=== PATIENT | male | born 1975 | race Caucasian/White ===

== ENCOUNTER → 2016-09-30 | Outpatient (CLI) | payer BC ==
[~2016-09-30] MED LIST: ADVIL200 MG PO; AMBIEN10 MG PO; FLEXERIL10 MG PO; HYDROCODON-ACE1 EAC4 PO; PRINIVIL (ZESTR20 MG PO
== END | disposition disaster alternative care site (69) ==
LOC: GRAD 09:23
DX: M54.5 Low back pain (principal); M79.604 Pain in right leg; Z53.8 Procedure and treatment not carried out for other reasons

== ENCOUNTER → 2016-10-25 | Day surgery (SDC) | payer BC ==
[~2016-10-25] VITALS: Ht 180.3 cm; Wt 97.0 kg
--- NOTE | ~2016-10-25 | OR ---
PATIENT'S NAME: BRENTON ALCAZAR [facility] AGE: 41 Y [address] ROOM: [place] [id number] LOCATION: [facility] [place] ADMIT DATE: 10/25/2016 OR/Procedure Report DISCHARGE DATE: FAMILY PHYSICIAN: Adriano Griffin MD ATTENDING PHYSICIAN: LORNA MULLIGAN SURGEON: Jose Luis Palma MD AUTO ELECTRICIAN: DATE OF PROCEDURE: 10/25/2016 PROCEDURE: Lumbar epidural steroid injection. DIAGNOSIS: Lumbar disk disease with radiculopathy. INDICATION: Risks, benefits, and alternatives were explained to the patient. He wished to proceed. After discussion of options, he wished to proceed with interlaminar epidural steroid injection at L4-5. The patient does have some degenerative disk and foraminal stenosis at L4-5 and L5-S1 bilateral. It was felt this would give him the best opportunity for relief; however, if they wanted to be more selective, we can do selective nerve root injections. PROCEDURE IN DETAIL: The patient was taken to the procedure room, placed in prone position. Back was prepped with Betadine x3 and a sterile drape applied over top. Fluoroscopy was used to identify the L4-5 disk interspace. 3 mL of 1% local anesthetic was used to the skin. Next using loss of resistance and fluoroscopic guidance, an 18-gauge Tuohy needle was directed. Once it is felt to be in position, about 1 mL of contrast injected in the lateral and AP views. It showed good epidural spread. No intrathecal uptake, no vascular uptake. Next, a mixture of 80 mg of Depo-Medrol and 3 mL of 0.25% bupivacaine were injected without complication. The stylette placed, needle removed, hemostasis achieved. Complications none. Blood loss none. The patient is to follow up with Dr. Sampson and Lorna Mulligan in approximately 2 weeks. JOSE LUIS PALMA MD JJP/modl /[id number] d: 10/25/161946 t: 03/29/17 1055, OPERATIVE SUMMARY
== END ==
LOC: GPOC 10-24 14:00 → GSDC 10-24 14:00 → GPOC 10-26 08:00 → GSDC 10-27 15:00
PROC: 3E0R33Z Introduction of Anti-inflammatory into Spinal Canal, Percutaneous Approach (ICD-10-PCS; principal; 2016-10-25)
DX: G89.29 Other chronic pain (principal); M51.16 Intervertebral disc disorders with radiculopathy, lumbar region; M48.07 Spinal stenosis, lumbosacral region; I10 Essential (primary) hypertension; Z79.899 Other long term (current) drug therapy
CPT/HCPCS: J1030; J1040

== ENCOUNTER → 2016-11-11 | Outpatient (CLI) | payer BC | END | disposition disaster alternative care site (69) | LOC: GRAD 11-08 09:10 | DX: M43.06 Spondylolysis, lumbar region (principal); M54.9 Dorsalgia, unspecified; M51.26 Other intervertebral disc displacement, lumbar region; M51.27 Other intervertebral disc displacement, lumbosacral region; M47.816 Spondylosis without myelopathy or radiculopathy, lumbar region ==

== ENCOUNTER → 2017-03-13 | Day surgery (SDC) | payer BC ==
[~2017-03-13] VITALS: Ht 180.3 cm; Wt 94.8 kg
--- NOTE | ~2017-03-13 | OR ---
PATIENT'S NAME: BRENTON ALCAZAR [facility] AGE: 41 Y [address] ROOM: [place] [id number] [place] [facility] [place]: 03/13/2017 OR/Procedure Report DISCHARGE DATE: FAMILY PHYSICIAN: Adriano Griffin MD ATTENDING PHYSICIAN: DEREK ALCANTARA SURGEON: Jose Luis Palma MD GUI DEVELOPER: DATE OF PROCEDURE: 03/13/2017 PROCEDURE: Left L4-L5 transforaminal epidural steroid injection. INDICATION: The patient has degenerative lumbar disk disease with radiculopathy and foraminal stenosis. The patient had a prior interlaminar epidural injection at L4-L5 for which he stated he got excellent relief for about four months. He recently had an episode with acute back pain. DESCRIPTION OF PROCEDURE: The patient was taken to the procedure room, placed in a prone position. Fluoroscopy was used to identify the L4-L5 interspace. The back was prepped with Betadine x3 and a sterile drape applied over top. The skin was numbed with 3 mL of 1% lidocaine. Next, a 22-gauge Arrow catheter was advanced using fluoroscopic guidance. Once the needle was felt to be in position, about 2 mL of Isovue was injected without complication and this was done with imaging in the AP and lateral view. This showed good epidural spread. No intrathecal uptake. No intravascular uptake. Next, a mixture of 2 mL of 2% lidocaine and 10 mg of preservative-free Decadron were injected without complication. The stylette placed, needle withdrawn, and hemostasis achieved. Complications none. Blood loss none. JOSE LUIS PALMA MD JJP/modl /[id number] CC: Derek Alcantara MD d: 03/13/17 2213 t: 03/15/17 1301, OPERATIVE SUMMARY
== END | disposition disaster alternative care site (69) ==
LOC: GPOC 03-10 08:00 → GSDC 03-10 08:00 → GPOC 03-10 16:00 → GSDC 12:34
PROC: 3E0R3BZ Introduction of Anesthetic Agent into Spinal Canal, Percutaneous Approach (ICD-10-PCS; principal; 2017-03-13)
PROC: 3E0R33Z Introduction of Anti-inflammatory into Spinal Canal, Percutaneous Approach (ICD-10-PCS; 2017-03-13)
DX: M51.16 Intervertebral disc disorders with radiculopathy, lumbar region (principal); I10 Essential (primary) hypertension; M48.06 Spinal stenosis, lumbar region; Z98.890 Other specified postprocedural states; Z79.899 Other long term (current) drug therapy
CPT/HCPCS: J1030; J1040; J1100